=== PATIENT | male | born 1995 | race Caucasian/White ===

== ENCOUNTER 2018-09-09 16:10 | Emergency (ER) | payer MEDICAID, OTHER ==
[~2018-09-09] VITALS: Ht 167.6 cm; Wt 104.3 kg
[~2018-09-09 16:10] MED LIST: LANS15CA21; RISP0.5T12 PO
[2018-09-09 16:54] LABS: Urine WBC None Seen /hpf (0 - 3)
[2018-09-09 17:00] LABS: Basophils # (auto) 0 uL; Basophils % (auto) 0.4 % (0.0-2.0); Eosinophils # (auto) 0.2 uL; Mean Corpuscular Hgb Conc. 33.6 g/dL (32.0-36.0); Monocytes # (auto) 0.8 uL; Platelet Count (auto) 273 10^3/uL (140-450); White Blood Cell 9.5 10^3/uL (4.4-10.8)
[2018-09-09 17:02] LABS: Eosinophils % (auto) 1.7 % (0.0-7.0); Hematocrit 52.5 % (41.0-53.0); Hemoglobin 17.6 g/dL (13.5-17.5); Lymphocytes # (auto) 1.9 uL; Lymphocytes % (auto) 19.5 % (10.0-50.0); Mean Corpuscular Hemoglobin 29.9 pg (28.0-32.0); Monocytes % (auto) 8.3 % (0.0-12.0); Neutrophils # (auto) 6.7 uL; Neutrophils % (auto) 70.1 % (37.0-80.0); Nucleated Red Blood Cells % 0.1 %; Red Cell Distribution Width 13.4 % (11.8-14.3)
[2018-09-09 17:17] LABS: Albumin 4.3 g/dL (3.4-5.0); Anion Gap 7 (5-15); Blood Urea Nitrogen 9 mg/dL (7-18); Calcium 9.9 mg/dL (8.5-10.1); Carbon Dioxide 28 mmol/L (21-32); Chloride 106 mmol/L (98-107); Glucose 101 mg/dL (74-106); Potassium 4.5 mmol/L (3.5-5.1); Sodium 141 mmol/L (136-145)
[2018-09-09 17:20] LABS: Alanine Aminotransferase 50 U/L (16-61); Alkaline Phosphatase 94 U/L (45-117); Aspartate Aminotransferase 32 U/L (15-37); BUN/Creatinine Ratio 8.3; Bilirubin, Total 0.6 mg/dL (0.2-1.0); GFR African American 107 mL/min; GFR Non-African American 88 mL/min; Total Protein 8.4 g/dL (6.4-8.2)
[2018-09-09 17:21] LABS: Urine Bacteria NONE SEEN /hpf (None Seen); Urine Blood Negative /uL (Negative); Urine Specific Gravity 1.005 (1.001-1.035)
[2018-09-09 23:18] VITALS: BP 153/85
== END 2018-09-10 00:22 | disposition home or self-care (01) ==
LOC: ER 16:10
DX: R07.89 Other chest pain (principal); M60.9 Myositis, unspecified; Z79.899 Other long term (current) drug therapy; Z88.0 Allergy status to penicillin
CPT/HCPCS: 36415; 71046; 80053; 81001; 82550; 84484; 85025; 93005

== ENCOUNTER 2021-12-19 16:43 | Emergency (ER) | payer MEDICAID ==
[~2021-12-19] VITALS: Ht 170.2 cm; Wt 102.1 kg
[~2021-12-19 16:43] MED LIST changes: -LANS15CA21; +LANS15CA37; -RISP0.5T12 PO; +RISP0.5T17 PO
[2021-12-19 17:02] VITALS: BP 140/98
== END 2021-12-19 21:54 | disposition left against medical advice (07) ==
LOC: ER 16:43
DX: R21 Rash and other nonspecific skin eruption (principal); Z53.21 Procedure and treatment not carried out due to patient leaving prior to being seen by health care provider